=== PATIENT | female | born 2000 | race African-American/Black ===

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

== ENCOUNTER 2022-02-20 20:04 | Emergency (ER) | payer OTHER ==
[2022-02-20 20:12] VITALS: BP 102/66; PULSE 76; TEMP 98.2; BMI 19.3
[2022-02-20] MEDS ORDERED: ALBUTEROL SO4 2.5/IPRATROPIUM 0.5 INH SOL 3 ML VIAL.NEB. NEB SCH (23:00)
[2022-02-20] MEDS ORDERED: ALBUTEROL SO4 2.5/IPRATROPIUM 0.5 INH SOL 3 ML VIAL.NEB. NEB ONE (23:03)
== END 2022-02-21 00:53 | disposition home or self-care (01) ==
LOC: JER 20:04
PROC: 3E0F7GC Introduction of Other Therapeutic Substance into Respiratory Tract, Via Natural or Artificial Opening (ICD-10-PCS; principal; 2022-02-20)
DX: J45.909 Unspecified asthma, uncomplicated (principal)
CPT/HCPCS: 0241U-QW; 99283-25